=== PATIENT | male | born 1980 | race Two or more races ===

== ENCOUNTER 2022-07-05 15:05 | Emergency (ER) | payer OTHER ==
[~2022-07-05] VITALS: Ht 185.4 cm; Wt 80.0 kg
[2022-07-05 15:18] VITALS: BP 158/92
[2022-07-05] MEDS ORDERED: ONDANSETRON 4MG 2ML VIAL IV ONE (15:50)
[2022-07-05] MEDS: MORPHINE 4 MG/ML 1ML VIAL IV PRN ×2 (16:21→17:29)
[2022-07-05] MEDS ORDERED: HYDR-3713 PO (18:28)
== END 2022-07-05 18:46 | disposition home or self-care (01) ==
LOC: M ED 15:05 → EDBD 15:05 → M ED 18:46
DX: S42.322A Displaced transverse fracture of shaft of humerus, left arm, initial encounter for closed fracture (principal); W00.0XXA Fall on same level due to ice and snow, initial encounter; Y92.481 Parking lot as the place of occurrence of the external cause; Y99.1 Military activity
CPT/HCPCS: 29105; 73060; 96374; 96375; 99284; J2270; J2405

== ENCOUNTER → 2022-07-06 | Outpatient (CLI) | payer OTHER ==
[~2022-07-06] MED LIST: HYDR-3713 PO
== END ==
LOC: M SOG 15:11
PROVIDERS: ATTEND Physician Assistant
DX: M79.642 Pain in left hand (principal)

== ENCOUNTER → 2022-07-13 | Outpatient (CLI) | payer OTHER | LOC: M SOG 08:06 | PROVIDERS: ATTEND Physician Assistant | DX: S42.302A Unspecified fracture of shaft of humerus, left arm, initial encounter for closed fracture (principal); M79.645 Pain in left finger(s); W18.30XA Fall on same level, unspecified, initial encounter; Y92.009 Unspecified place in unspecified non-institutional (private) residence as the place of occurrence of the external cause ==

== ENCOUNTER → 2022-07-20 | Outpatient (CLI) | payer OTHER | LOC: M SOG 08:53 | PROVIDERS: ATTEND Physician Assistant | DX: S42.302D Unspecified fracture of shaft of humerus, left arm, subsequent encounter for fracture with routine healing (principal); M79.645 Pain in left finger(s) ==

== ENCOUNTER → 2022-08-01 | Outpatient (CLI) | payer OTHER | LOC: M SOG 14:53 | PROVIDERS: ATTEND Physician Assistant | DX: S42.302D Unspecified fracture of shaft of humerus, left arm, subsequent encounter for fracture with routine healing (principal); W18.30XD Fall on same level, unspecified, subsequent encounter ==

== ENCOUNTER → 2022-08-14 | Outpatient (CLI) | payer OTHER | LOC: M SOG 14:24 | PROVIDERS: ATTEND Physician Assistant | DX: S42.302D Unspecified fracture of shaft of humerus, left arm, subsequent encounter for fracture with routine healing (principal); W18.30XD Fall on same level, unspecified, subsequent encounter; Y92.009 Unspecified place in unspecified non-institutional (private) residence as the place of occurrence of the external cause ==

== ENCOUNTER → 2022-08-28 | Outpatient (CLI) | payer OTHER | LOC: M SOG 13:38 | PROVIDERS: ATTEND Physician Assistant | DX: S42.352A Displaced comminuted fracture of shaft of humerus, left arm, initial encounter for closed fracture (principal); S62.525A Nondisplaced fracture of distal phalanx of left thumb, initial encounter for closed fracture; Y93.9 Activity, unspecified; Y92.9 Unspecified place or not applicable ==

== ENCOUNTER → 2022-09-25 | Outpatient (CLI) | payer OTHER | LOC: M SOG 11:44 | PROVIDERS: ATTEND Physician Assistant | DX: S42.302D Unspecified fracture of shaft of humerus, left arm, subsequent encounter for fracture with routine healing (principal); W18.30XD Fall on same level, unspecified, subsequent encounter; Y92.009 Unspecified place in unspecified non-institutional (private) residence as the place of occurrence of the external cause ==

== ENCOUNTER → 2022-10-26 | Outpatient (CLI) | payer OTHER | LOC: M SOG 09:13 | PROVIDERS: ATTEND Physician Assistant | DX: S42.302D Unspecified fracture of shaft of humerus, left arm, subsequent encounter for fracture with routine healing (principal); W18.30XD Fall on same level, unspecified, subsequent encounter; Y92.009 Unspecified place in unspecified non-institutional (private) residence as the place of occurrence of the external cause ==

== ENCOUNTER → 2022-11-28 | Outpatient (CLI) | payer OTHER | LOC: M SOG 08:47 | PROVIDERS: ATTEND Physician Assistant | DX: S42.302D Unspecified fracture of shaft of humerus, left arm, subsequent encounter for fracture with routine healing (principal); W18.30XD Fall on same level, unspecified, subsequent encounter ==

== ENCOUNTER → 2023-02-08 | Outpatient (CLI) | payer OTHER | LOC: M SOG 15:48 | PROVIDERS: ATTEND Physician Assistant | DX: S42.302G Unspecified fracture of shaft of humerus, left arm, subsequent encounter for fracture with delayed healing (principal) ==

== ENCOUNTER 2023-03-01 23:28 | Inpatient (IN) | payer OTHER ==
[~2023-03-01] VITALS: Ht 175.3 cm; Wt 78.0 kg
[2023-03-01] MEDS ORDERED: IBUP-1728 (23:40)
[2023-03-01] MEDS ORDERED: MM S100C PO (23:40)
[2023-03-02] VITALS (11 sets, daily range): BP systolic 100–131; BP diastolic 54–86; TEMP 98–99.1; O2SAT 95–99
[2023-03-02 00:48] LABS: BASO % 0.3 % (0.0-1.0); HEMATOCRIT 45.5 % (42.0-52.0); HEMOGLOBIN 15.2 g/dl (13.5-17.5); LYMPH % 15.6 % (24.0-44.0); MEAN CORPUSCULAR HEMOGLOBIN 29.2 pg (27.0-33.0); MEAN CORPUSCULAR HGB CONC 33.4 g/dl (32.0-36.5); MEAN CORPUSCULAR VOLUME 87.3 fl (80.0-96.0); MONO # 0.6 10^3/uL (0.0-0.8); NEUTROPHILS # 4.7 10^3/uL (1.5-8.5); NEUTROPHILS % 73.6 % (36.0-66.0); PLATELET COUNT, AUTOMATED 121 10^3/uL (150-450); RED BLOOD COUNT 5.21 10^6/uL (4.30-6.10); WHITE BLOOD COUNT 6.4 10^3/uL (4.0-10.0)
[2023-03-02 00:55] LABS: CK-MB VALUE MASS < 1.0 NG/ML (<3.6); ETHYL ALCOHOL (ETHANOL) < 0.003 % (0.000-0.010)
[2023-03-02 00:56] LABS: ACETAMINOPHEN LEVEL < 2.0 UG/ML (10.0-20.0)
[2023-03-02 00:57] LABS: ALBUMIN 3.3 G/DL (3.2-5.2); ALKALINE PHOSPHATASE 68 U/L (46-116); ALT/SGPT 9 U/L (7.0-40); AST/SGOT 13 U/L (<34); BILIRUBIN,DIRECT 0.4 MG/DL (<0.4); BILIRUBIN,TOTAL 1.2 MG/DL (0.3-1.2); BLOOD UREA NITROGEN 14 MG/DL (9-23); CALCIUM LEVEL 8.4 MG/DL (8.5-10.1); CARBON DIOXIDE LEVEL 29 MMOL/L (20-31); CHLORIDE LEVEL 102 MMOL/L (98-107); CPK CREATINE PHOSPHOKINASE 100 U/L (46-171); CREATININE FOR GFR 0.75 MG/DL (0.70-1.30); GLOMERULAR FILTRATION RATE > 60.0 (>60); GLUCOSE, FASTING 93 MG/DL (60-100); SALICYLATE LEVEL < 3.0 MG/DL (<30); SODIUM LEVEL 137 MMOL/L (136-145); TOTAL PROTEIN 6.7 G/DL (5.7-8.2)
[2023-03-02 00:59] LABS: THYROID STIMULATING HORMONE 2.385 uIU/ML (0.55-4.78)
[2023-03-02 01:10] LABS: AMPHETAMINES LEVEL URINE NEGATIVE (NEGATIVE); BARBITURATES URINE NEGATIVE (NEGATIVE); BENZODIAZEPINES URINE NEGATIVE (NEGATIVE); COCAINE METABOLITE URINE NEGATIVE (NEGATIVE); METHADONE URINE NEGATIVE (NEGATIVE); OPIATES URINE NEGATIVE (NEGATIVE); PHENCYCLIDINE URINE NEGATIVE (NEGATIVE)
[2023-03-02 01:11] LABS: CANNABINOIDS URINE NEGATIVE (NEGATIVE)
[2023-03-02 02:20] LABS: RSV AMPLIFICATION NEGATIVE (NEGATIVE)
[2023-03-02] MEDS: NS 1,000 ML IV SCH ×2 (03:31→15:53)
[2023-03-02] MEDS ORDERED: SODIUM CHLORIDE 0.9% 1000ML IV STA (04:30)
[2023-03-02] MEDS ORDERED: ACETAMINOPHEN *IV* 1,000 MG in IV 1 EA IV ONE (05:00)
[2023-03-02 05:10] LABS: INR 1.07; PROTHROMBIN TIME 13.6 SECONDS (12.5-14.5)
[2023-03-02 05:11] LABS: PARTIAL THROMBOPLASTIN TIME 27.5 SECONDS (24.8-34.2)
[2023-03-02 05:14] LABS: D-DIMER QUANT 0.36 ug/mL (<0.5)
[2023-03-02 05:24] LABS: MAGNESIUM LEVEL 1.9 MG/DL (1.8-2.4)
[2023-03-02 05:25] LABS: LDH LACTATE DEHYDROGENASE 133 U/L (120-246)
[2023-03-02 05:28] LABS: FERRITIN 173.7 NG/ML (10.5-307.3)
[2023-03-02 05:33] LABS: PROCALCITONIN <0.04 ng/ml
[2023-03-02] MEDS: ENOXAPARIN 40MG/0.4ML SYRINGE (J1650 PER 10MG) SC SCH (09:00)
[2023-03-02] MEDS ORDERED: RAME8TAB2 PO (09:56)
[2023-03-02] MEDS ORDERED: IBUP80TA PO (09:56)
[2023-03-02] MEDS ORDERED: LIDO1PAD TOP (09:56)
[2023-03-02] MEDS ORDERED: PERI12LIQ SSP (09:56)
[2023-03-02] MEDS ORDERED: HYDR-3363 PO (09:56)
[2023-03-02] MEDS ORDERED: CITA20TA6 PO (09:56)
[2023-03-02] MEDS ORDERED: ACET1TAB55 PO (09:56)
[2023-03-02] MEDS ORDERED: BUSP5TA PO (09:56)
[2023-03-02] MEDS ORDERED: BISM262O49 PO (09:56)
[2023-03-02] MEDS ORDERED: FLON1SPR NARES (09:56)
[2023-03-02 11:27] LABS: FOLATE 15.48 NG/ML (>5.4); VITAMIN B12 LEVEL 303 PG/ML (211-911)
[2023-03-02] MEDS ORDERED: CEPACOL LOZENGE PO PRN (13:15)
[2023-03-02] MEDS ORDERED: ISOVUE-370 76% 100ML VIAL As Ordered ONE (13:28)
[2023-03-02] MEDS ORDERED: HOME MED LIST COMPLETE! XX SCH (15:25)
[2023-03-02] MEDS: CLOTRIMAZOLE 10 MG TROCHE PO SCH ×2 (18:41→22:36)
[2023-03-02] MEDS ORDERED: PROHANCE 279.3MG/ML 15ML VIAL As Ordered ONE (19:05)
[2023-03-02] MEDS: PANTOPRAZOLE 40MG VIAL IV SCH (22:36)
[2023-03-02] MEDS: DOCUSATE SODIUM 100MG CAPSULE PO SCH (22:37)
[2023-03-03] VITALS: O2SAT 97
[2023-03-03] MEDS ORDERED: ACETAMINOPHEN *IV* 1,000 MG in IV 1 EA IV ONE (01:00)
[2023-03-03 03:46] VITALS: BP 104/60; TEMP 97.5; O2SAT 96
[2023-03-03 05:16] LABS: HEMATOCRIT 42.5 % (42.0-52.0); MEAN CORPUSCULAR HEMOGLOBIN 29.1 pg (27.0-33.0); MEAN CORPUSCULAR HGB CONC 32.9 g/dl (32.0-36.5); MEAN CORPUSCULAR VOLUME 88.4 fl (80.0-96.0); PLATELET COUNT, AUTOMATED 125 10^3/uL (150-450); RED BLOOD COUNT 4.81 10^6/uL (4.30-6.10); WHITE BLOOD COUNT 4.4 10^3/uL (4.0-10.0)
[2023-03-03] MEDS: CLOTRIMAZOLE 10 MG TROCHE PO SCH ×3 (05:16→12:30)
[2023-03-03 05:43] LABS: BLOOD UREA NITROGEN 11 MG/DL (9-23); CALCIUM LEVEL 8.4 MG/DL (8.5-10.1); CARBON DIOXIDE LEVEL 30 MMOL/L (20-31); CHLORIDE LEVEL 105 MMOL/L (98-107); CREATININE FOR GFR 0.79 MG/DL (0.70-1.30); GLOMERULAR FILTRATION RATE > 60.0 (>60); GLUCOSE, FASTING 89 MG/DL (60-100); POTASSIUM SERUM 4.1 MMOL/L (3.5-5.1); SODIUM LEVEL 140 MMOL/L (136-145)
[2023-03-03 08:31] VITALS: BP 117/63; TEMP 97.1; O2SAT 97
[2023-03-03] MEDS: ENOXAPARIN 40MG/0.4ML SYRINGE (J1650 PER 10MG) SC SCH (10:15)
[2023-03-03] MEDS: DOCUSATE SODIUM 100MG CAPSULE PO SCH (10:16)
[2023-03-03] MEDS: PANTOPRAZOLE 40MG VIAL IV SCH (10:17)
[2023-03-03] MEDS ORDERED: LORA1TAB23 PO (11:28)
[2023-03-03] MEDS ORDERED: CELE20TA PO (11:28)
[2023-03-03] MEDS ORDERED: ATIV1TAB10 PO (11:37)
[2023-03-03] MEDS ORDERED: OMEP40CA4 PO (11:39)
== END 2023-03-03 13:43 | disposition home or self-care (01) | DRG 179 ==
LOC: M ED 23:28 → M ED INP 03-02 02:51 → M PCU 03-02 03:40
PROVIDERS: ADMIT Internal Medicine; ATTEND Internal Medicine
PROC: B246ZZZ Ultrasonography of Right and Left Heart (ICD-10-PCS; principal; 2023-03-02)
DX: U07.1 COVID-19 (principal); E86.0 Dehydration; R13.10 Dysphagia, unspecified; D69.6 Thrombocytopenia, unspecified; R55 Syncope and collapse; K59.00 Constipation, unspecified; F44.4 Conversion disorder with motor symptom or deficit; F41.8 Other specified anxiety disorders; F32.89 Other specified depressive episodes; R40.4 Transient alteration of awareness

== ENCOUNTER → 2023-05-14 | Outpatient (CLI) | payer OTHER ==
[~2023-05-14] MED LIST changes: +ACET1TAB55 PO; +ATIV1TAB10 PO; +BISM262O49 PO; +BUSP5TA PO; +CELE20TA PO; +CITA20TA6 PO; +FLON1SPR NARES; +HYDR-3363 PO; +IBUP-1728; +IBUP80TA PO; +LIDO1PAD TOP; +LORA1TAB23 PO; +MM S100C PO; +OMEP40CA4 PO; +PERI12LIQ SSP; +RAME8TAB2 PO
== END ==
LOC: M SOG 07:58
PROVIDERS: ATTEND Physician Assistant
DX: S42.302G Unspecified fracture of shaft of humerus, left arm, subsequent encounter for fracture with delayed healing (principal)

== ENCOUNTER → 2023-05-14 | Outpatient (CLI) | payer OTHER | LOC: M PLAIMG 13:01 | PROVIDERS: ATTEND Orthopaedic Surgery | DX: S42.302G Unspecified fracture of shaft of humerus, left arm, subsequent encounter for fracture with delayed healing (principal) ==

== ENCOUNTER → 2023-08-21 | Outpatient (CLI) | payer OTHER | LOC: M RAD 09:40 | PROVIDERS: ATTEND Physician Assistant | DX: N50.82 Scrotal pain (principal) ==

== ENCOUNTER 2023-09-29 14:39 | Inpatient (IN) | payer OTHER ==
[~2023-09-29] VITALS: Ht 177.8 cm; Wt 74.3 kg
[2023-09-29] MEDS: NS 1,000 ML IV ONE (15:00)
[2023-09-29 15:02] LABS: BASO % 0.7 % (0.0-1.0); EOS % 0.5 % (0.0-3.0); HEMATOCRIT 47.6 % (42.0-52.0); HEMOGLOBIN 16.2 g/dl (13.5-17.5); LYMPH # 1.2 10^3/uL (1.5-5.0); LYMPH % 26.1 % (24.0-44.0); MEAN CORPUSCULAR HEMOGLOBIN 29.6 pg (27.0-33.0); MONO # 0.4 10^3/uL (0.0-0.8); MONO % 8.2 % (2.0-8.0); NEUTROPHILS # 2.8 10^3/uL (1.5-8.5); NEUTROPHILS % 64.3 % (36.0-66.0); PLATELET COUNT, AUTOMATED 151 10^3/uL (150-450); RED BLOOD COUNT 5.47 10^6/uL (4.30-6.10); WHITE BLOOD COUNT 4.4 10^3/uL (4.0-10.0)
[2023-09-29 15:17] LABS: D-DIMER QUANT < 0.27 ug/mL (<0.5); INR 1.02; PARTIAL THROMBOPLASTIN TIME 26.8 SECONDS (24.8-34.2); PROTHROMBIN TIME 13.1 SECONDS (12.5-14.5)
[2023-09-29 15:44] LABS: AMPHETAMINES LEVEL URINE NEGATIVE (NEGATIVE); BARBITURATES URINE NEGATIVE (NEGATIVE); BENZODIAZEPINES URINE NEGATIVE (NEGATIVE); CANNABINOIDS URINE NEGATIVE (NEGATIVE); COCAINE METABOLITE URINE NEGATIVE (NEGATIVE); METHADONE URINE NEGATIVE (NEGATIVE); OPIATES URINE NEGATIVE (NEGATIVE); PHENCYCLIDINE URINE NEGATIVE (NEGATIVE)
[2023-09-29 15:47] LABS: C REACTIVE PROTEIN QUANTITATIV < 0.40 MG/DL (<1.0); ETHYL ALCOHOL (ETHANOL) < 0.003 % (0.000-0.010)
[2023-09-29 15:48] LABS: SALICYLATE LEVEL < 3.0 MG/DL (<30)
[2023-09-29 15:49] LABS: ALBUMIN 3.6 G/DL (3.2-5.2); ALKALINE PHOSPHATASE 81 U/L (46-116); ALT/SGPT 12 U/L (7.0-40); AST/SGOT 16 U/L (<34); BILIRUBIN,DIRECT 0.2 MG/DL (<0.4); BILIRUBIN,TOTAL 0.9 MG/DL (0.3-1.2); BLOOD UREA NITROGEN 17 MG/DL (9-23); CALCIUM LEVEL 9.2 MG/DL (8.5-10.1); CARBON DIOXIDE LEVEL 33 MMOL/L (20-31); CHLORIDE LEVEL 101 MMOL/L (98-107); GLOMERULAR FILTRATION RATE > 60.0 (>60); GLUCOSE, FASTING 118 MG/DL (60-100); POTASSIUM SERUM 4.2 MMOL/L (3.5-5.1); SODIUM LEVEL 138 MMOL/L (136-145)
[2023-09-29 15:50] LABS: THYROID STIMULATING HORMONE 1.312 uIU/ML (0.55-4.78)
[2023-09-29 15:51] LABS: FREE T4 1.11 NG/DL (0.89-1.76)
[2023-09-29 16:01] LABS: PROCALCITONIN <0.04 ng/ml
[2023-09-29] MEDS: KETOROLAC 30 MG/ML 1ML VIAL IV ONE (16:01)
[2023-09-29 16:02] LABS: CPK CREATINE PHOSPHOKINASE 160 U/L (46-171); MB/CK RELATIVE INDEX 0.62 (< OR =4)
[2023-09-29 16:29] LABS: CK-MB VALUE MASS < 1.0 NG/ML (<3.6)
[2023-09-29 16:30] LABS: CPK CREATINE PHOSPHOKINASE 142 U/L (46-171)
[2023-09-29] MEDS ORDERED: MED REC CURRENTLY UNOBTAINABLE XX SCH (16:55)
[2023-09-29] MEDS ORDERED: diphenhydrAMINE 25MG CAP PO PRN (22:35)
[2023-09-29] MEDS ORDERED: MOM 30ML SUSPENSION UDC PO PRN (22:35)
[2023-09-29] MEDS ORDERED: MAALOX 30 ML SUSP *UDC PO PRN (22:35)
[2023-09-30] MEDS ORDERED: ONDANSETRON 4MG ORAL DISINTEGRATING TAB PO PRN (09:10)
[2023-09-30 16:05] VITALS: BP 114/69; TEMP 98.8; O2SAT 97
[2023-09-30] MEDS: TAMSULOSIN 0.4 MG CAP PO SCH (21:35)
[2023-10-01 06:23] VITALS: BP 113/67; TEMP 97.9; O2SAT 96
[2023-10-01] MEDS ORDERED: propofoL 200 MG/20 ML VIAL As Ordered ONE (07:05)
[2023-10-01 09:00] VITALS: BP 130/68; TEMP 98.2; O2SAT 98
[2023-10-01] MEDS ORDERED: LIDO1PAD TOP (10:19)
[2023-10-01] MEDS ORDERED: HYDR1CRE30 TOP (10:19)
[2023-10-01] MEDS ORDERED: POLY17PO18 PO (10:19)
[2023-10-01] MEDS ORDERED: PANT40TA29 PO (10:19)
[2023-10-01] MEDS ORDERED: FLOM0.4C39 PO (10:19)
[2023-10-01] MEDS ORDERED: VITA500075 PO (10:19)
[2023-10-01] MEDS ORDERED: ROZE8TAB16 PO (10:19)
[2023-10-01] MEDS ORDERED: BUSP10TA PO (10:19)
[2023-10-01] MEDS ORDERED: IBUP200C25 PO (10:19)
[2023-10-01] MEDS ORDERED: HOME MED LIST COMPLETE! XX SCH (10:25)
[2023-10-01] MEDS: VENLAFAXINE **XR** 37.5 MG CAPSULE PO SCH (10:47)
[2023-10-01] MEDS: IBUPROFEN 400MG TAB PO PRN (10:47)
[2023-10-01 17:19] VITALS: BP 115/70; TEMP 98.2; O2SAT 98
[2023-10-01 19:35] VITALS: BP 119/68; TEMP 97.3; O2SAT 95
[2023-10-01 21:17] LABS: CK-MB VALUE MASS < 1.0 NG/ML (<3.6)
[2023-10-01 21:18] LABS: BLOOD UREA NITROGEN 18 MG/DL (9-23); CALCIUM LEVEL 8.8 MG/DL (8.5-10.1); CARBON DIOXIDE LEVEL 29 MMOL/L (20-31); CHLORIDE LEVEL 105 MMOL/L (98-107); CPK CREATINE PHOSPHOKINASE 190 U/L (46-171); CREATININE FOR GFR 0.87 MG/DL (0.70-1.30); GLOMERULAR FILTRATION RATE > 60.0 (>60); GLUCOSE, FASTING 111 MG/DL (60-100); MAGNESIUM LEVEL 1.8 MG/DL (1.8-2.4); MB/CK RELATIVE INDEX 0.52 (< OR =4); POTASSIUM SERUM 4.2 MMOL/L (3.5-5.1); SODIUM LEVEL 141 MMOL/L (136-145)
[2023-10-02 06:12] VITALS: BP 120/72; TEMP 98.5; O2SAT 96
[2023-10-02] MEDS: LORazepam 1 MG TAB PO PRN (08:22)
[2023-10-02] MEDS: OLANZapine 5 MG TAB PO SCH (10:29)
[2023-10-02 17:02] VITALS: BP 119/72; TEMP 97.5; O2SAT 100
[2023-10-03 06:46] VITALS: BP 115/64; TEMP 97.3; O2SAT 98
[2023-10-03] MEDS: traZODone 50 MG TAB PO PRN (20:07)
[2023-10-03] MEDS: ACETAMINOPHEN TAB 650MG DOSE (2X325MG) PO PRN (20:13)
[2023-10-04 06:02] VITALS: BP 111/56; TEMP 97.7; O2SAT 99
[2023-10-04 15:27] VITALS: BP 130/83; TEMP 98.2; O2SAT 97
[2023-10-05 06:09] VITALS: BP 109/65; TEMP 98.2
[2023-10-05] MEDS: VENLAFAXINE **XR** 75MG CAPSULE PO SCH (09:06)
[2023-10-05 17:18] VITALS: BP 126/79; TEMP 98; O2SAT 100
[2023-10-06 06:24] VITALS: BP 117/75; TEMP 97.7; O2SAT 100
[2023-10-06 15:49] VITALS: BP 123/70; TEMP 98; O2SAT 98
[2023-10-07 06:24] VITALS: BP 117/64; TEMP 97.4; O2SAT 98
[2023-10-07 18:10] VITALS: BP 118/74; TEMP 97.8; O2SAT 99
[2023-10-08 06:28] VITALS: BP 124/60; TEMP 98.3; O2SAT 100
[2023-10-08 18:25] VITALS: BP 129/81; TEMP 97.4
[2023-10-09 06:14] VITALS: BP 120/73; TEMP 98.3; O2SAT 99
[2023-10-09] MEDS: buPROPion **XL** TABLET 150MG (WELLBUTRIN XL) PO SCH (10:04)
[2023-10-09 18:32] VITALS: BP 117/63; TEMP 97.6
[2023-10-10 06:33] VITALS: BP 107/56; TEMP 97.9; O2SAT 98
[2023-10-10 18:50] VITALS: BP 105/66; TEMP 97.9
[2023-10-11 06:03] VITALS: BP 106/64; TEMP 98
[2023-10-11] MEDS ORDERED: VENL75CA47 PO (10:19)
[2023-10-11] MEDS ORDERED: TRAZ-252 PO (10:19)
[2023-10-11] MEDS ORDERED: BUPR150T12 PO (10:19)
[2023-10-11] MEDS ORDERED: ABIL1TAB11 PO (10:19)
== END 2023-10-11 11:26 | disposition home or self-care (01) | DRG 885 ==
LOC: M ED 14:39 → EDBD 14:39 → M ED INP 22:32 → M PSY 22:55
PROVIDERS: ADMIT Student in an Organized Health Care Education/Training Program; ATTEND Student in an Organized Health Care Education/Training Program
DX: F32.3 Major depressive disorder, single episode, severe with psychotic features (principal); F94.0 Selective mutism; R07.89 Other chest pain; N52.9 Male erectile dysfunction, unspecified; M79.671 Pain in right foot; M79.672 Pain in left foot; R31.0 Gross hematuria; R41.2 Retrograde amnesia; G43.709 Chronic migraine without aura, not intractable, without status migrainosus; Z79.899 Other long term (current) drug therapy; Z76.5 Malingerer [conscious simulation]